=== PATIENT | male | born 1965 | race African-American/Black ===

== ENCOUNTER 2025-08-13 21:42 | Emergency (ER) | payer OTHER ==
[~2025-08-13] VITALS: Ht 185.4 cm; Wt 97.5 kg
[2025-08-13] MEDS ORDERED: APIXABAN 5 MG TABLET ONE (22:31)
[2025-08-13] MEDS: APIXABAN 5 MG TABLET PO SCH (22:34)
[2025-08-13 23:17] VITALS: BP 132/85; TEMP 98; O2SAT 97
== END 2025-08-13 23:17 ==
LOC: ER 21:49
DX: Z02.89 Encounter for other administrative examinations (principal); E11.9 Type 2 diabetes mellitus without complications; I10 Essential (primary) hypertension; Z65.3 Problems related to other legal circumstances; Z79.01 Long term (current) use of anticoagulants; Z79.84 Long term (current) use of oral hypoglycemic drugs; Z86.718 Personal history of other venous thrombosis and embolism; Z76.0 Encounter for issue of repeat prescription
CPT/HCPCS: 82962-TC